=== PATIENT | male | born 1990 | race African-American/Black ===

== ENCOUNTER 2016-09-09 05:44 | Emergency (ER) | payer MEDICAID | END 2016-09-09 06:45 | disposition home or self-care (01) | LOC: D.ER 05:44 | DX: B34.9 Viral infection, unspecified (principal); J06.9 Acute upper respiratory infection, unspecified ==

== ENCOUNTER 2016-10-14 11:48 | Emergency (ER) | payer MEDICAID ==
[2016-10-14 13:02] LABS: BASOPHILS 0.6 % (0.0-2.0); EOSINOPHILS 1.4 % (0-7); HEMATOCRIT 40.1 % (42.0-54.0); HEMOGLOBIN 14.2 g/dL (13.5-17.5); IMMATURE GRANULOCYTES 0.3 % (0-5); LYMPHOCYTES 30.9 % (15-50); MCH 32.1 pg (26.0-34.0); MCHC 35.4 g/dL (31.0-37.0); MCV 90.7 fL (80.0-100.0); MEAN PLATELET VOLUME 9.4 fL (7.4-10.4); NEUTROPHILS 58.8 % (40-80); RBC 4.42 10x6/uL (4.20-6.10); RDW 12.8 % (11.5-14.5); WBC 6.5 10x3/uL (4.8-10.8)
[2016-10-14 13:14] LABS: PLATELET COUNT 194 10x3/uL (130-400)
[2016-10-14 13:16] LABS: APPEARANCE HAZY (CLEAR); COLOR YELLOW (YELLOW)
[2016-10-14 13:17] LABS: BILIRUBIN NEGATIVE (NEGATIVE); GLUCOSE NEGATIVE (NEGATIVE); KETONE NEGATIVE (NEGATIVE); LEUKOCYTE ESTERASE NEGATIVE (NEGATIVE); NITRITE NEGATIVE (NEGATIVE); PROTEIN NEGATIVE (NEGATIVE); UROBILINOGEN NORMAL (NORMAL)
[2016-10-14 13:27] LABS: ALBUMIN 3.8 g/dL (3.4-5.0); ALKALINE PHOSPHATASE 51 U/L (46-116); ALT (SGPT) 18 U/L (10-68); AMYLASE - SERUM 54 U/L (25-115); BILIRUBIN - TOTAL 0.41 mg/dL (0.2-1.3); CALC OSMOLALITY 282 mosm/kg (275-300); CALCIUM 8.6 mg/dL (8.5-10.1); CARBON DIOXIDE 26.6 mmol/L (21.0-32.0); CHLORIDE - SERUM 107 mmol/L (98-107); CREATININE - SERUM 0.9 mg/dL (0.6-1.3); GLUCOSE 110 mg/dL (74-106); LIPASE 141 U/L (73-393); POTASSIUM - SERUM 3.4 mmol/L (3.5-5.1); SODIUM 142 mmol/L (136-145); UREA NITROGEN 10 mg/dL (7-18); eGFR NON AFRICAN AMERICAN > 90 mL/min (90-120)
== END 2016-10-14 15:40 | disposition home or self-care (01) ==
LOC: D.ER 11:48
PROVIDERS: Emergency Medicine
DX: K29.00 Acute gastritis without bleeding (principal); R11.10 Vomiting, unspecified; A08.4 Viral intestinal infection, unspecified; F17.200 Nicotine dependence, unspecified, uncomplicated

== ENCOUNTER 2017-02-23 22:07 | Emergency (ER) | payer MEDICAID | END 2017-02-24 01:02 | disposition home or self-care (01) | LOC: D.ER 22:07 | DX: Z03.89 Encounter for observation for other suspected diseases and conditions ruled out (principal) ==

== ENCOUNTER 2017-05-25 19:12 | Emergency (ER) | payer MEDICAID | END 2017-05-25 22:54 | disposition home or self-care (01) | LOC: D.ER 19:12 | DX: H66.93 Otitis media, unspecified, bilateral (principal); J20.9 Acute bronchitis, unspecified; V43.62XA Car passenger injured in collision with other type car in traffic accident, initial encounter; Y93.89 Activity, other specified; Y92.410 Unspecified street and highway as the place of occurrence of the external cause ==

== ENCOUNTER 2017-06-20 15:22 | Emergency (ER) | payer MEDICAID | END 2017-06-20 17:40 | disposition home or self-care (01) | LOC: D.ER 15:22 | DX: S00.83XA Contusion of other part of head, initial encounter (principal); S30.0XXA Contusion of lower back and pelvis, initial encounter; Y04.2XXA Assault by strike against or bumped into by another person, initial encounter; Y93.89 Activity, other specified; Y92.410 Unspecified street and highway as the place of occurrence of the external cause; F17.200 Nicotine dependence, unspecified, uncomplicated ==

== ENCOUNTER 2017-11-16 10:27 | Emergency (ER) | payer SELFPAY | END 2017-11-16 12:31 | disposition home or self-care (01) | LOC: D.ER 10:27 | DX: S16.1XXA Strain of muscle, fascia and tendon at neck level, initial encounter (principal); V43.52XA Car driver injured in collision with other type car in traffic accident, initial encounter; Y93.89 Activity, other specified; Y92.410 Unspecified street and highway as the place of occurrence of the external cause; F17.200 Nicotine dependence, unspecified, uncomplicated ==

== ENCOUNTER 2018-05-06 20:59 | Emergency (ER) | payer SELFPAY ==
[~2018-05-06] VITALS: Ht 177.8 cm; Wt 61.2 kg
[2018-05-06 21:11] VITALS: Ht 177.8 cm; Wt 61.2 kg
[2018-05-06] MEDS ORDERED: VENTOLIN HFA18 GM INH (22:50)
[2018-05-06] MEDS ORDERED: PHENERGAN DM SYR5 ML PO (22:50)
[2018-05-06] MEDS ORDERED: VIBRAMYCIN 100100 MG PO (22:50)
[2018-05-06 23:27] VITALS: BP 102/60
== END 2018-05-06 23:27 | disposition home or self-care (01) ==
LOC: D.ER 20:59
DX: J40 Bronchitis, not specified as acute or chronic (principal); M79.18 Myalgia, other site; R50.9 Fever, unspecified; R11.0 Nausea; F17.200 Nicotine dependence, unspecified, uncomplicated

== ENCOUNTER 2018-06-10 15:23 | Emergency (ER) | payer SELFPAY ==
[~2018-06-10 15:23] MED LIST: PHENERGAN DM SYR5 ML PO; VENTOLIN HFA18 GM INH; VIBRAMYCIN 100100 MG PO
[2018-06-10] MEDS ORDERED: CLARITIN 10 MG10 MG PO (20:15)
[2018-06-10] MEDS ORDERED: ZPAK PO (20:15)
== END 2018-06-10 16:09 | disposition left against medical advice (07) ==
LOC: D.ER 15:23
DX: J06.9 Acute upper respiratory infection, unspecified (principal); R51 Headache; R50.9 Fever, unspecified; F17.200 Nicotine dependence, unspecified, uncomplicated

== ENCOUNTER 2018-06-10 16:18 | Emergency (ER) | payer SELFPAY ==
[~2018-06-10] VITALS: Ht 177.8 cm; Wt 61.4 kg
[2018-06-10 16:23] VITALS: Ht 177.8 cm; Wt 61.4 kg
[2018-06-10] MEDS ORDERED: CLARITIN 10 MG10 MG PO (20:15)
[2018-06-10] MEDS ORDERED: ZPAK PO (20:15)
[2018-06-10 20:38] VITALS: BP 115/54
== END 2018-06-10 20:39 | disposition home or self-care (01) ==
LOC: D.ER 16:18
DX: J06.9 Acute upper respiratory infection, unspecified (principal); R09.89 Other specified symptoms and signs involving the circulatory and respiratory systems; R51 Headache; R50.9 Fever, unspecified; F17.200 Nicotine dependence, unspecified, uncomplicated

== ENCOUNTER 2018-07-15 18:54 | Observation (INO) | payer SELFPAY ==
[~2018-07-15] VITALS: Ht 177.8 cm; Wt 61.4 kg
[~2018-07-15 18:54] MED LIST changes: +CLARITIN 10 MG10 MG PO; +ZPAK PO
[2018-07-15 18:59] VITALS: Ht 177.8 cm; Wt 61.4 kg
[2018-07-15 19:30] LABS: BASOPHILS 0.4 % (0-2); EOSINOPHILS 0.3 % (0-7); HEMATOCRIT 47.5 % (42.0-54.0); IMMATURE GRANULOCYTES 0.7 % (0-5); LYMPHOCYTES 17.5 % (15-50); MCH 32.8 pg (26.0-34.0); MCHC 35.8 g/dL (31.0-37.0); MCV 91.7 fL (80.0-100.0); MEAN PLATELET VOLUME 9.4 fL (7.4-10.4); MONOCYTES 9.2 % (2-11); NEUTROPHILS 71.9 % (40-80); RBC 5.18 10x6/uL (4.20-6.10); RDW 13.6 % (11.5-14.5)
[2018-07-15 19:32] LABS: PLATELET COUNT 262 10x3/uL (130-400)
[2018-07-15 19:47] LABS: ALBUMIN 3.9 g/dL (3.4-5.0); ALKALINE PHOSPHATASE 69 U/L (46-116); ALT (SGPT) 16 U/L (10-68); AMYLASE - SERUM 65 U/L (25-115); BILIRUBIN - TOTAL 0.24 mg/dL (0.2-1.3); CALC OSMOLALITY 282 mosm/kg (275-300); CARBON DIOXIDE 28.3 mmol/L (21.0-32.0); CHLORIDE - SERUM 105 mmol/L (98-107); CREATININE - SERUM 1.2 mg/dL (0.6-1.3); GLUCOSE 84 mg/dL (74-106); LIPASE 103 U/L (73-393); POTASSIUM - SERUM 3.8 mmol/L (3.5-5.1); PROTEIN - SERUM 8.4 g/dL (6.4-8.2); SODIUM 143 mmol/L (136-145); UREA NITROGEN 11 mg/dL (7-18); eGFR NON AFRICAN AMERICAN 76 mL/min (90-120)
--- NOTE | 2018-07-15 21:00 | NUR ---
POISON CONTROL CALLED. STATES TO GET ABG, WATCH FOR LOW POTASSIUM, PULMONARY AND CEREBRAL EDEMA, AND TO CHECK A ASA LEVEL WITH LYTES Q2H
[2018-07-15 21:30] VITALS: BP 124/67
--- NOTE | 2018-07-15 22:10 | NUR ---
PLAN OF CARE DISCUSSED WITH PT. PT VERBALIZES UNDERSTANDING. NO S/S OF ACUTE DISTRESS NOTED. PT DENIES FURTHER NEEDS AT THIS TIME.
[2018-07-15 22:30] VITALS: BP 97/47
[2018-07-15 23:30] VITALS: BP 110/77
[2018-07-15 23:33] LABS: COLOR YELLOW (YELLOW)
[2018-07-15 23:34] LABS: APPEARANCE CLEAR (CLEAR); BILIRUBIN NEGATIVE (NEGATIVE); GLUCOSE NEGATIVE (NEGATIVE); KETONE MODERATE mg/dL (NEGATIVE); NITRITE NEGATIVE (NEGATIVE); PROTEIN NEGATIVE (NEGATIVE); UROBILINOGEN NORMAL (NORMAL)
--- NOTE | 2018-07-15 23:43 | NUR ---
PT RESTING ON BED, NO S/S OF ACUTE DISTRESS NOTED. PT FAMILY AT BEDSIDE.
[2018-07-16 00:30] VITALS: BP 113/62
--- NOTE | 2018-07-16 01:16 | NUR ---
BARBARA SPOKE WITH SHAILESH AT POISON CONTROL. POISON CONTROL UPDATED ON PT CONDITION, SUGGEST CONTINUED MONITORING OF PT MENTAL STATUS, POTASSIUM LEVEL AND SALICYLATE.
[2018-07-16 01:30] VITALS: BP 114/66
--- NOTE | 2018-07-16 01:50 | NUR ---
PT SLEEPING, WAKES TO VERBAL STIMULI. PT ORIENTED. PT FAMILY AT BEDSIDE.
[2018-07-16 04:19] LABS: BASOPHILS 0.4 % (0-2); EOSINOPHILS 0.8 % (0-7); HEMATOCRIT 40.2 % (42.0-54.0); HEMOGLOBIN 14.4 g/dL (13.5-17.5); IMMATURE GRANULOCYTES 0.6 % (0-5); LYMPHOCYTES 23.4 % (15-50); MCH 32.3 pg (26.0-34.0); MCHC 35.8 g/dL (31.0-37.0); MCV 90.1 fL (80.0-100.0); MEAN PLATELET VOLUME 9.5 fL (7.4-10.4); MONOCYTES 12.7 % (2-11); NEUTROPHILS 62.1 % (40-80); PLATELET COUNT 236 10x3/uL (130-400); RBC 4.46 10x6/uL (4.20-6.10); RDW 13.4 % (11.5-14.5)
[2018-07-16 04:30] LABS: CALC OSMOLALITY 284 mosm/kg (275-300); CALCIUM 7.7 mg/dL (8.5-10.1); CARBON DIOXIDE 29.4 mmol/L (21.0-32.0); CHLORIDE - SERUM 105 mmol/L (98-107); CREATININE - SERUM 1.1 mg/dL (0.6-1.3); GLUCOSE 86 mg/dL (74-106); SODIUM 144 mmol/L (136-145); UREA NITROGEN 11 mg/dL (7-18); eGFR NON AFRICAN AMERICAN 84 mL/min (90-120)
[2018-07-16 04:32] LABS: POTASSIUM - SERUM 2.7 mmol/L (3.5-5.1)
[2018-07-16 04:42] VITALS: BP 119/67
--- NOTE | 2018-07-16 04:42 | NUR ---
PT WAKES TO VERBAL STIMULI. PT ORIENTED. PT UPDATED ON CONDITION. RN ADMINISTERED PO POTASSIUM. PT TOLERATED WELL. PT FAMILY AT BEDSIDE.
[2018-07-16 05:42] VITALS: BP 110/67
--- NOTE | 2018-07-16 06:10 | NUR ---
PT AMBULATED TO RESTROOM WITH A STEADY GAIT. NO S/S OF ACUTE DISTRESS NOTED. PT ALERT, ORIENTED.
[2018-07-16 06:37] LABS: CALC OSMOLALITY 287 mosm/kg (275-300); CALCIUM 7.7 mg/dL (8.5-10.1); CARBON DIOXIDE 28.3 mmol/L (21.0-32.0); CHLORIDE - SERUM 106 mmol/L (98-107); CREATININE - SERUM 1.2 mg/dL (0.6-1.3); GLUCOSE 78 mg/dL (74-106); SODIUM 145 mmol/L (136-145); UREA NITROGEN 12 mg/dL (7-18); eGFR NON AFRICAN AMERICAN 76 mL/min (90-120)
[2018-07-16 06:39] LABS: POTASSIUM - SERUM 3.3 mmol/L (3.5-5.1)
--- NOTE | 2018-07-16 07:11 | NUR ---
PT REPORT GIVEN TO MARY JIMENEZ
--- NOTE | 2018-07-16 07:15 | NUR ---
PT AWAKE, ALERT AND ORIENTED X 4. RESPIRATIONS EVEN AND NON-LABORED. SKIN W/D. NO DISTRESS NOTED. PT REQUESTING TO LEAVE AMA. THIS NURSE ENCOURAGED PT TO STAY AND RECEIVE TREATMENT. PT STATES HE HAS COURT THIS MORNING AND CANNOT STAY. PAGED DR. BERGERON ON-CALL .
--- NOTE | 2018-07-16 07:55 | NUR ---
DR. BERGERON NOTIFIED. PT INSTRUCTED TO STOP TAKING ASPIRIN AND ASPIRIN PRODUCTS PER DR. BERGERON.
--- NOTE | 2018-07-16 07:58 | NUR ---
PT SIGNED AMA FORM, SODIUM BICARB INFUSION STOPPED, IV DC'D.
[2018-07-16 08:21] VITALS: BP 127/67
== END 2018-07-16 07:58 | disposition left against medical advice (07) ==
LOC: D.ER 18:54 → D.EDHOLD 22:24 → OBSVTIME 22:24 → D.EDHOLD 07-16 07:58
PROVIDERS: Family Medicine; ADMIT Internal Medicine Nephrology
DX: T39.011A Poisoning by aspirin, accidental (unintentional), initial encounter (principal); R11.2 Nausea with vomiting, unspecified; H93.19 Tinnitus, unspecified ear; F17.210 Nicotine dependence, cigarettes, uncomplicated

== ENCOUNTER 2020-02-02 10:00 | Emergency (ER) | payer MEDICAID ==
[~2020-02-02] VITALS: Ht 177.8 cm; Wt 65.9 kg
[2020-02-02 10:07] VITALS: Ht 177.8 cm; Wt 65.9 kg
[2020-02-02] MEDS ORDERED: MOOD STABILIZER (10:08)
[2020-02-02 10:46] LABS: BASOPHILS 0.2 % (0-2); HEMATOCRIT 44.7 % (42.0-54.0); HEMOGLOBIN 15.8 g/dL (13.5-17.5); IMMATURE GRANULOCYTES 0.2 % (0-5); LYMPHOCYTES 12.9 % (15-50); MCH 32.9 pg (26.0-34.0); MCHC 35.3 g/dL (31.0-37.0); MCV 93.1 fL (80.0-100.0); MEAN PLATELET VOLUME 9.1 fL (7.4-10.4); MONOCYTES 6.9 % (2-11); NEUTROPHILS 78.8 % (40-80); PLATELET COUNT 217 10x3/uL (130-400); RDW 12.9 % (11.5-14.5); WBC 9.3 10x3/uL (4.8-10.8)
[2020-02-02 10:55] LABS: CALC OSMOLALITY 279 mosm/kg (275-300); CALCIUM 8.9 mg/dL (8.5-10.1); CARBON DIOXIDE 29.7 mmol/L (21.0-32.0); CHLORIDE - SERUM 107 mmol/L (98-107); CREATININE - SERUM 0.9 mg/dL (0.6-1.3); POTASSIUM - SERUM 3.8 mmol/L (3.5-5.1); SODIUM 141 mmol/L (136-145); UREA NITROGEN 14 mg/dL (7-18); eGFR NON AFRICAN AMERICAN > 90 mL/min (90-120)
[2020-02-02 10:57] LABS: GLUCOSE 68 mg/dL (74-106)
[2020-02-02 11:01] LABS: ALBUMIN 3.9 g/dL (3.4-5.0); ALKALINE PHOSPHATASE 59 U/L (30-120); ALT (SGPT) 21 U/L (10-68); BILIRUBIN - TOTAL 0.63 mg/dL (0.2-1.3); PROTEIN - SERUM 7.4 g/dL (6.4-8.2)
[2020-02-02] MEDS ORDERED: ZITHROMAX250 MG PO (11:06)
[2020-02-02] MEDS ORDERED: MEDROL DOSE PACK4 MG PO (11:13)
[2020-02-02 12:24] VITALS: BP 120/80
== END 2020-02-02 12:25 | disposition home or self-care (01) ==
LOC: D.ER 10:00
PROVIDERS: Emergency Medicine
DX: R05 Cough (principal); J45.909 Unspecified asthma, uncomplicated; R50.9 Fever, unspecified; Z20.828 Contact with and (suspected) exposure to other viral communicable diseases; Z72.0 Tobacco use; J02.9 Acute pharyngitis, unspecified

== ENCOUNTER 2021-01-10 02:08 | Emergency (ER) | payer OTHER ==
[~2021-01-10] VITALS: Ht 177.8 cm; Wt 65.9 kg
[~2021-01-10 02:08] MED LIST changes: +MEDROL DOSE PACK4 MG PO; +MOOD STABILIZER; +ZITHROMAX250 MG PO
[2021-01-10 02:15] VITALS: Ht 177.8 cm; Wt 65.9 kg
[2021-01-10 02:59] VITALS: BP 125/81
== END 2021-01-10 02:58 | disposition home or self-care (01) ==
LOC: D.ER 02:08
DX: H00.016 Hordeolum externum left eye, unspecified eyelid (principal); J45.909 Unspecified asthma, uncomplicated